=== PATIENT | female | born 1965 ===

== ENCOUNTER 2025-03-08 14:37 | Outpatient (AMB) | payer OTHER, SELFPAY ==
--- NOTE | 2025-03-08 14:46 | A.OFFPC_ITS ---
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 Accompanied by: Self / Same As Patient Allergies No Known Allergies Allergy (Verified 03/08/25 14:49) Medication List - Last Reconciled 03/08/25 by Lisa Lewis MD anastrozole 1 mg PO DAILY ascorbate calcium (vitamin C) 500 mg PO DAILY aspirin 1 tab PO DAILY atorvastatin 10 mg PO DAILY Bifidobacterium longum (Align (B.longum)) cells PO .QD blood sugar diagnostic (FreeStyle Lite Strips) As directed calcium carbonate 1,200 mg PO DAILY chlorthalidone 25 mg PO DAILY cholecalciferol (vitamin D3) 50 mcg PO DAILY clobetasol 0.05% topical coenzyme Q10 300 mg PO DAILY cranberry extract 650 mg PO DAILY empagliflozin (Jardiance) 25 mg PO QAM levothyroxine (Levoxyl) mcg PO lisinopril 10 mg PO DAILY magnesium oxide 400 mg PO DAILY mecobalamin (vitamin B12) 1,000 mcg PO DAILY meloxicam 15 mg PO DAILY PRN metformin ER 1,000 mg PO BID multivitamin 1 tab PO DAILY zoledronic acid 4 mg IV .twice a year Tobacco use date assessed: 03/08/25 Dental Screening Dental Screen Date: 03/08/25 Did you have a dental visit in the last 12 months?: Yes Did you have a dental problem in the last 6 months where you did not have access to dental care?: No Was dental information given to patient?: Patient has dentist HPI HPI Comments History of Present Illness Details The patient is a 59-year-old female presenting for reestablishing care and to follow up on multiple issues. Hematuria: Experienced episodic hematuria a few months prior, normal renal and bladder ultrasound, done at [facility], has not seen urology yet. Insomnia: Chronic, fragmented sleep, contributing factors include noise and stress. Was taking magnesium supplement. ESS scale score of 3, no apneas, +snoring. Breast cancer: Stable on anastrozole, completed bone density test, history of Zometa infusions. Managed by Dr. Grijalva at [facility] Diabetes Mellitus Type 2: Fasting glucose levels between 150-179 mg/dL, worsened sleep affecting levels due to night time meals. Bilateral leg rash: Resolved after clobetasol treatment, seen by [facility] Anxiety: Stress attributed to caregiving responsibilities. Hypertension: Managed with medication, stable. Hypothyroidism- on levothyroxine Medical History: - Hematuria - Insomnia - Hypothyroidism - Breast cancer, stable - Diabetes Mellitus Type 2 - Uterine fibroids - Anxiety - Hypertension Social History: - Employment: Works flexible hours at [employer] - Family status: Significant caregiver r gordon for mother with dementia. - Nutritional intake: Noted varied intak e with recent high fasting glucose linked to dietary choices. Family History: - Mother: Dementia, HTN Diagnostic Results: Bone density results pending- done at [facility] Cologuard done a few years prior Review of Systems - Constitutional: Reports insomnia; brok en, poor-quality sleep. - Respiratory: Denies significant respir atory symptoms or findings related to recent respiratory event. - Dermatologic: Reports resolved itchy r louie. -- Genitourinary: per hpi -- Msk: occasional right knee pain, incr eased stiffness when walking - Neurological: Denies excessive daytime somnolence, reports insomnia-related nocturnal vigilance. Physical Exam - General- No acute distress - Respiratory- Clear lung sounds noted. - Cardiovascular- soft murmur across pre cordium, normal s1, s2 - Abdominal- Abdomen soft, non-tender. N ormoactive bowel sounds - Lower extremities- trace edema bilater ally. Assessment and Plan 1. Hematuria - Referral to urology for evaluation. Pl an for CT abdomen pelvis with contrast since pt has history of malignancy. 2. Insomnia - Prescribed trazodone, low initial dose - 25mg can titrate to 50mg and monitor. 3. Breast cancer - Ongoing treatment and monitoring. 4. Diabetes Mellitus Type 2 - Continued management and monitoring. C heck A1C 5. Anxiety - counseled on stress management 6. Hypertension - Current meds continue. 7. Hypothyroidism- continue levothyroxin e 8. Osteoarthritis of knee- counseled on sparing use of meloxicam in light of DM, HTN. Discussion Notes We discussed several active health issues during this visit. Regarding hematuria, I advised referral to a urologist to evaluate and manage potential causes, such as urinary tract abnormalities, with possible diagnostic procedures like cystoscopy. For insomnia, we agreed on a trial of low-dose trazodone, ensuring monitoring and adjustment according to response. With respect to her past breast cancer, ongoing management with current therapeutic regimens per oncology. Follow up in 3-4 months Patient Instructions - Start taking trazodone at 25 mg as dis cussed, 2-3 hours before sleep. - Monitor and maintain a healthy diet; a void high sodium intake. - Continue your medications as discussed - Contact your PROVIDER NETWORK ANALYST - Inform us immediately if significant a dverse effects occur. 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 How often do you have a drink containing alcohol?: Never 3. How often do you have six or more drinks on one occasion?: Never Total Score: 0 Physical exam (Primary Care) Vital Signs: Last Vital Signs Temp 96.8 F 03/08/25 14:47 Pulse 94 03/08/25 14:47 Resp 16 03/08/25 14:47 BP 120/84 03/08/25 14:47 Pulse Ox 95 03/08/25 14:47 Oxygen Delivery Method Room Air 03/08/25 14:47 BMI result Body Mass Index 38.6 Tobacco/Smoking Status: Tobacco use Status Tobacco use date assessed 03/08/25 03/08/25 14:59 Patient Tobacco Use Status Former Tobacco user 03/08/25 14:59 e-Cigarette/Vaping Use Never Used 03/08/25 14:59 Coding Level of Care Code Est Pt Level 4 (41707) Complex EM visit Add On G2211 Diagnoses Primary hypertension I10 Acquired hypothyroidism E03.9 Hypothyroidism type: acquired Diabetes mellitus type 2 in obese E11.69; E66.9 Malignant neoplasm of female breast, unspecified estrogen receptor status, unspecified laterality, unspecified site of breast C50.919 Breast location: unspecified site of breast Estrogen receptor status: unspecified Patient sex: female Laterality: unspecified laterality Hematuria, unspecified type R31.9 Hematuria type: unspecified type Assessment & Plan Assessment & Plan (1) Primary hypertension: Code(s): I10 - Essential (primary) hypertension Category: Medical (2) Hypothyroidism: Code(s): E03.9 - Hypothyroidism, unspecified Category: Medical Qualifiers: Hypothyroidism type: acquired Qualified Code(s): E03.9 - Hypothyroidism, unspecified (3) Diabetes mellitus type 2 in obese: Code(s): E11.69 - Type 2 diabetes mellitus with other specified complication; E66.9 - Obesity, unspecified Category: Medical (4) Breast cancer: Code(s): C50.919 - Malignant neoplasm of unspecified site of unspecified female breast Category: Medical Qualifiers: Breast location: unspecified site of breast Estrogen receptor status: unspecified Patient sex: female Laterality: unspecified laterality Qualified Code(s): C50.919 - Malignant neoplasm of unspecified site of unspecified female breast (5) Hematuria: Code(s): R31.9 - Hematuria, unspecified Category: Medical Qualifiers: Hematuria type: unspecified type Qualified Code(s): R31.9 - Hematuria, unspecified Plan - Urology referral for hematuria. - Start trazodone for insomnia, begin with 25 mg. - Await and review bone density test results. - Monitor blood sugar and continue diabetes regimen. - Follow up with OBGYN - Continue antihypertensive medication. Orders: Orders Complete Blood Count Auto Diff Today C50.919 - Malignant neoplasm of unspecified site of unspecified female breast, E03.9 - Hypothyroidism, unspecified, E11.69 - Type 2 diabetes mellitus with other specified complication, E66.9 - Obesity, unspecified, I10 - Essential (primary) hypertension Hemoglobin A1c Today C50.919 - Malignant neoplasm of unspecified site of unspecified female breast, E03.9 - Hypothyroidism, unspecified, E11.69 - Type 2 diabetes mellitus with other specified complication, E66.9 - Obesity, unspecified, I10 - Essential (primary) hypertension TSH reflex Free T4 Today C50.919 - Malignant neoplasm of unspecified site of unspecified female breast, E03.9 - Hypothyroidism, unspecified, E11.69 - Type 2 diabetes mellitus with other specified complication, E66.9 - Obesity, unspecified, I10 - Essential (primary) hypertension Microalbumin, Random (w Creat) Today C50.919 - Malignant neoplasm of unspecified site of unspecified female breast, E03.9 - Hypothyroidism, unspecified, E11.69 - Type 2 diabetes mellitus with other specified complication, E66.9 - Obesity, unspecified, I10 - Essential (primary) hypertension Magnesium Today E03.9 - Hypothyroidism, unspecified, E11.69 - Type 2 diabetes mellitus with other specified complication, E66.9 - Obesity, unspecified, I10 - Essential (primary) hypertension Lipid Panel Today C50.919 - Malignant neoplasm of unspecified site of unspecified female breast, E03.9 - Hypothyroidism, unspecified, E11.69 - Type 2 diabetes mellitus with other specified complication, E66.9 - Obesity, unspecified, I10 - Essential (primary) hypertension Comprehensive Met. Panel Today C50.919 - Malignant neoplasm of unspecified site of unspecified female breast, E03.9 - Hypothyroidism, unspecified, E11.69 - Type 2 diabetes mellitus with other specified complication, E66.9 - Obesity, unspecified, I10 - Essential (primary) hypertension Referrals Urology Referral R31.9 - Hematuria, unspecified Medications: New trazodone 25 mg (1/2 x 50 mg) PO BEDTIME PRN 30 tabs 5RF sleep empagliflozin (Jardiance) 25 mg PO QAM 90 tabs 3RF albuterol sulfate 90 mcg/actuation (Ventolin HFA) 2 inhalations inhalation Q6H PRN 8.5 grams 4RF shortness of breath or wheezing
[2025-03-08 14:47] VITALS: BP 120/84; PULSE 94; RESP 16; TEMP 36; O2SAT 95; BMI 38.6
== END 2025-03-08 15:51 | disposition home or self-care (01) ==
LOC: HO.HMCHD 14:37
PROVIDERS: PCP Internal Medicine; Visit Provider Internal Medicine
DX: I10 Essential (primary) hypertension (principal); E03.9 Hypothyroidism, unspecified; E11.69 Type 2 diabetes mellitus with other specified complication; E66.9 Obesity, unspecified; C50.919 Malignant neoplasm of unspecified site of unspecified female breast; R31.9 Hematuria, unspecified